=== PATIENT | female | born 1995 | race Caucasian/White ===

== ENCOUNTER 2018-10-09 19:56 | Emergency (ER) | payer OTHER ==
[~2018-10-09] VITALS: Ht 167.6 cm; Wt 59.0 kg
[2018-10-09 20:11] VITALS: BP 146/90
--- NOTE | 2018-10-09 20:14 | NUR ---
TO LOBBY A/W BED AMBULATORY
--- NOTE | 2018-10-09 20:25 | NUR ---
Note undone in EDM - 10/09/18 at 2118 by MEDAILEEN PRESENTS TO ED, C/O LACERATIONS ON L HAND [id number]. PT STATED THAT SHE WAS PLAYING A GAME WITH KNIFE THAT PIERCED THROUGH HER HAND. DENIES SI. APPROX 2CM LACERATION NOTED BETWEEN 1ST AND 2ND FINGER ON TOP OF HAND; AND 1CM LACERATION BETWEEN 1ST AND 2ND FINGER ON PALM, BLEEDING CONTROLLED. CAP REFILL<3S DISTALLY, +SENSATION, DECREASED ROM DUE TO PAIN. AOX4, SKIN NORMAL WARM AND DRY, RR EVEN AND UNLABORED. HX HTN; DENIES RX OR OTC.
--- NOTE | 2018-10-09 20:33 | NUR ---
PT TO BED 7.
--- NOTE | 2018-10-09 20:35 | NUR ---
23/F PRESENTS TO ED, C/O LACERATIONS ON L HAND [id number]. PT STATED THAT SHE WAS PLAYING A GAME WITH KNIFE THAT PIERCED THROUGH HER HAND. DENIES SI. APPROX 2CM LACERATION NOTED BETWEEN 1ST AND 2ND FINGER ON TOP OF HAND; AND 1CM LACERATION BETWEEN 1ST AND 2ND FINGER ON PALM, BLEEDING CONTROLLED. CAP REFILL<3S DISTALLY, +SENSATION, DECREASED ROM DUE TO PAIN. AOX4, SKIN NORMAL WARM AND DRY, RR EVEN AND UNLABORED. HX HTN; DENIES RX OR OTC.
[2018-10-09] MEDS ORDERED: LIDOCAINE 1% ***ER ONLY *** 10 MG/ML VIAL INJ ONE (20:40)
[2018-10-09] MEDS ORDERED: BACITRACIN OINT 500 UNITS/GM PKT TP ONE (20:40)
[2018-10-09] MEDS ORDERED: LIDOCAINE MPF 1% - 5 mL VIAL 10 ML ONE (20:56)
--- NOTE | 2018-10-09 22:27 | NUR ---
DR CUNNINGHAM AT BEDSIDE FOR L HAND LAC REPAIR
[2018-10-09 22:45] VITALS: BP 132/81
== END 2018-10-09 22:45 | disposition home or self-care (01) ==
LOC: MED 19:56
DX: S61.412A Laceration without foreign body of left hand, initial encounter (principal); I10 Essential (primary) hypertension; F17.210 Nicotine dependence, cigarettes, uncomplicated; Z88.1 Allergy status to other antibiotic agents; W26.0XXA Contact with knife, initial encounter; Y93.89 Activity, other specified; Y92.89 Other specified places as the place of occurrence of the external cause; Y99.8 Other external cause status
CPT/HCPCS: 12001; 90471; 90715; 99283; J2001